=== PATIENT | male | born 1975 | race Caucasian/White ===

== ENCOUNTER 2021-09-10 15:41 | Emergency (ER) | payer OTHER, SELFPAY ==
--- NOTE | ~2021-09-10 | XR_ITS ---
EXAMINATION: XR chest 1V portable EXAM DATE: 09/10/2021 16:03 INDICATION: severe SOB with cough xtoday. COPD . TECHNIQUE: Portable AP frontal chest x-ray was obtained. There is no prior study for comparison. FINDINGS: Mild cardiomegaly. No confluent consolidation, pneumothorax or pleural effusion suspected. Surgical clips overlying left axilla, infraclavicular region. There are no osseous abnormalities iden tified. IMPRESSION: Cardiomegaly. Reviewed, dictated and finalized at location B. STITCH TOPSTITCHER IMPRESSION: Cardiomegaly.
--- NOTE | 2021-09-10 15:45 | ECG_ITS ---
Measurements Intervals [place] Rate: 92 P: 72 MT: 174 QRS: 103 QRSD: 100 T: 0 QT: 358 QTc: 444 Interpretive Statements SINUS RHYTHM POSSIBLE LEFT ATRIAL ENLARGEMENT RIGHT AXIS DEVIATION DELAYED PRECORDIAL R/S TRANSITION LOW QRS VOLTAGE IN LIMB LEADS BORDERLINE T WAVE ABNORMALITY- DIFFUSE LEADS BASELINE WANDER- V2 BORDERLINE ECG Electronically Signed On 09-11-2021 6:36:46 DEVELOPMENT SPECIALIST by Evan Daugherty D.O.
[2021-09-10 15:48] VITALS: BP 110/81; PULSE 101; RESP 24; TEMP 36.2; O2SAT 100
[2021-09-10 16:02] VITALS: BP 112/86; PULSE 95; RESP 24; O2SAT 100
[2021-09-10] MEDS: IPRATROPIUM 0.5 MG/ALBUTEROL SULFATE 2.5 MG AMPUL.NEB 3 ML INHALATION (16:32)
--- NOTE | 2021-09-10 16:45 | PC.NURSE ---
Pt refused blood draw and any more blood pressures. Pt stated he needed Xanax. Per Dr. Ponce if pt refused blood draw he can leave AMA. Pt stated he was refusing treatment and would leave.
--- NOTE | 2021-09-10 16:48 | ED.SOB ---
HPI - SOB/Dyspnea General Chief Complaint: Shortness of Breath/Dyspnea Stated Complaint: Trouble breathing Source: patient History of Present Illness HPI Narrative: this is a 46-year-old gentleman with history of heart disease has an external defibrillator presents with some shortness of breath that occurred suddenly earlier today presented the emergency department denies having any chest pain or pressure no nausea vomiting patient said he did become diaphoretic. With no abdominal pain no nausea vomiting. MD elicited complaint: shortness of breath and cough Pertinent past history: other ( heart disease) Onset (ago): hour(s) Related Data Allergies Allergy/AdvReac Type Severity Reaction Status Date / Time Shrimp Allergy Mild Unknown Uncoded 09/10/21 16:12 Review of Systems Review of Systems: All systems reviewed & are unremarkable except as noted in HPI and below PMFSH Past Medical History Medical History CAD (coronary artery disease) Exam Const: General: no acute distress and alert Orientation/consciousness: patient oriented x3 HENMT: Head: normal to inspection Eyes: Conjunctivae: conjunctivae normal Pupils: Equal, round and reactive pupils present EOM: EOMs intact bilaterally Neck: Neck: normal visual inspection, no lymphadenopathy and no meningeal signs Chest: Chest palpation & inspection: normal inspection of the chest Other: has an external defibrillator Resp: Effort & Inspection: normal respiratory effort Auscultation: clear to auscultation bilaterally Cardio: Rate: regular rate Rhythm: regular rhythm GI: GI Palp: Yes Soft to palpation Percussion: Yes normal to percussion Back/Spine/Pelvis: Back: no CVA tenderness Skin: General skin exam: normal color Rashes: no rashes Neuro: General: patient oriented x3 and moves all extremities Extrem: General: normal to inspection and no pedal edema Psych: Mental Status: mental status grossly normal Course Course Emergency Course: patient had chest x-ray performed which showed no acute pulmonary issues but does have cardiomegaly, otherwise patient refused any other intervention and blood draws and is likely a sign out against medical advice. Vital Signs Vital signs: Vital Signs Temperature 36.2 C L 09/10/21 15:48 Pulse Rate 101 H 09/10/21 15:48 Respiratory Rate 24 H 09/10/21 15:48 Blood Pressure 110/81 09/10/21 15:48 Pulse Oximetry 100 09/10/21 15:48 Temperature 36.2 C L 09/10/21 15:48 Pulse Rate 95 09/10/21 16:02 Respiratory Rate 24 H 09/10/21 16:02 Blood Pressure 112/86 09/10/21 16:02 Pulse Oximetry 100 09/10/21 16:02 MDM - SOB/Dyspnea Lab Data Labs: Lab Results 09/10/21 Range/Units 16:29 SARS-CoV-2 RNA (RT-PCR) Pending Critical Care Time Critical Care Time Critical Care Time: No Discharge Plan Discharge Clinical Impression: Breath shortness Patient Disposition: Left Against Medical Advice Condition: Stable Follow-up/Referrals: UNKNOWN,DOCTOR [Primary Care Provider] - Time of Disposition: 16:51
--- NOTE | 2021-09-10 16:59 | PC.NURSE ---
Incident for AMA completed.
[2021-09-10 17:10] LABS: SARS-CoV-2 RNA PCR Negative (Negative)
[2021-09-10 17:28] LABS: Influenza A QL RT-PCR Negative (Negative); Influenza B QL RT-PCR Negative (Negative)
== END 2021-09-10 16:48 | disposition left against medical advice (07) ==
PROVIDERS: Emergency Provider Emergency Medicine
DX: R06.02 Shortness of breath (principal); Z20.822 Contact with and (suspected) exposure to COVID-19
CPT/HCPCS: 71045; 87502; 93005; 99283; C9803; U0003; U0005

== ENCOUNTER 2021-09-16 22:23 | Observation (INO) | payer OTHER, SELFPAY ==
--- NOTE | ~2021-09-16 | XR_ITS ---
EXAMINATION: XR chest 2V EXAM DATE: 09/17/2021 02:19 INDICATION: Cough. History of CHF. TECHNIQUE: Frontal and lateral projections of the chest obtained and reviewed. Comparison is made to prior examination from 09/10/2021. FINDINGS: Possible ill-defined left perihilar airspace disease. There is small left pleural effusion. Please clinically correlate for edema versus pneumonia. No pneumothorax. Right lung is clear. IMPRESSION: Possible developing left perihilar edema or pneumonia. Small left pleural effusion. Reviewed, dictated and finalized at location A. ING MACHINE OPERATOR
--- NOTE | ~2021-09-16 | XR_ITS ---
EXAMINATION: XR abdomen/kub 1V EXAM DATE: 09/16/2021 23:34 INDICATION: Constipation X 3 days. TECHNIQUE: Frontal projection(s) of the abdomen for interpretation. There is no prior study for jordan martines. FINDINGS: There is moderate amount of colonic gas, smaller amount of stool within this. No small tin wel dilation, nonobstructive bowel gas pattern. There are no suspicious calcifications identified. There is no organomegaly suspected. The bones are unremarkable. IMPRESSION: Unremarkable abdomen x-ray exam. Reviewed, dictated and finalized at location A. RVISOR PROP MAKING
[2021-09-16 22:47] VITALS: BP 114/94; PULSE 103; RESP 20; TEMP 36.2; O2SAT 100
--- NOTE | 2021-09-16 22:52 | ED.GENADULT ---
HPI - General Adult General Chief complaint: Unspecified Stated complaint: detoxing of off medications Source: patient and RN notes reviewed Mode of arrival: ambulatory Limitations: no limitations History of Present Illness HPI narrative: patient presents because he says he wants to get off of his medications. Last time he took his medications was 1 day ago so he missed all of his doses last night and today. He does not know the medications that he is on he did not bring a list. Left all of his medications at home. Does not know what he takes medications for. Patient does state he has a history of methamphetamine use in the past. Currently smokes marijuana. He was finally able to give us name of a friend that we could call to get his medications. All of his medications are consistent with congestive heart failure. He says the medications he is taking is giving him hallucinations and making him not sleep. He did not know he had a diagnosis of congestive heart failure. We were also able to discern that he was recently hospitalized at [facility] in [facility]. I was able to confirm that he was a patient there from 09/03/2021 till 09/08/2021. he has 1 previous visit here 6 days ago but left AMA before any confirmation of medication or labs could be drawn. complaint: Wants off medications Onset (ago): day(s) (1) Related Data Home Medications Medication Instructions Recorded Confirmed carvedilol 6.25 mg PO QID 09/16/21 09/16/21 furosemide 20 mg PO QID 09/16/21 09/16/21 sacubitril-valsartan [Entresto] 1 tablet PO BID 09/16/21 09/16/21 spironolactone 25 mg PO QID 09/16/21 09/16/21 Allergies Allergy/AdvReac Type Severity Reaction Status Date / Time Shrimp Allergy Mild Unknown Uncoded 09/10/21 16:12 Review of Systems Review of Systems: All systems reviewed & are unremarkable except as noted in HPI and below Constitutional: Constitutional: Denies chills and Denies fever(s) Cardiovascular: Cardiovascular: Denies chest pain Respiratory: Respiratory: Reports cough and Denies dyspnea Gastrointestinal: Gastrointestinal: Reports constipation ( States he has not had a bowel movement in 3 days), Denies nausea and Denies vomiting [facility] Past Medical History Medical History (Updated 09/17/21 @ 02:53 by Malcolm Zambrano MD) Congestive heart failure COPD (chronic obstructive pulmonary disease) Dilated cardiomyopathy Melanoma Social History Social History (Updated 09/16/21 @ 23:26 by Malcolm Zambrano MD) Smoking packs per day: 1.5 Smoking cigarettes per day: 30.0 Years smoked: 30 Smoking pack-years: 45.00 Smoking status: Former smoker Tobacco type: cigarettes Second hand tobacco smoke exposure: Yes Alcohol intake: former Substance use: current Substance use type: marijuana Other substance usage details: history of meth use Spiritual care concerns: No Exam Const: General: no acute distress, alert and confusion Nutritional Appearance: well nourished HENMT: Head: normal to inspection Ears: external ears normal Face and sinus: normal facial exam Mouth: Yes moist mucous membranes Eyes: Conjunctivae: conjunctivae normal Pupils: Equal, round and reactive pupils present EOM: EOMs intact bilaterally Neck: Neck: normal visual inspection Resp: Effort & Inspection: normal respiratory effort Auscultation: clear to auscultation bilaterally Cardio: Rate: regular rate Rhythm: regular rhythm GI: GI Palp: Yes Soft to palpation, No Tenderness to palpation present (GI), No Guarding due to palpation present (GI) and No Rebound tenderness present Auscultation: normal bowel sounds Back/Spine/Pelvis: Cervical Spine: cervical ROM normal Thoracic/Lumbar Spine: thoraco-lumbar ROM normal Skin: General skin exam: normal color Rashes: no rashes Neuro: General: moves all extremities, no meningeal signs, no focal motor deficits and CN's II-XI intact bilaterally Speech: normal speech Gait e
--- NOTE | 2021-09-16 23:25 | PC.NURSE ---
Patient is a poor historian and unable to provide any insight in regards to home medications, previous medical or surgical history. patient states that he is a previous IV drug user, smoke marijuana daily, and denies drinking alcohol. Patient states that he was recently seen and treated at [facility] in [place]. After RN searched prescription hx, it appears that the patient was treated and discharged in [place] by a Dr.Rekha Palacios. Patient states that he decided to take himself off of home medications because he states that he does not need them and they have caused him insomnia for past four days. Patient was educated by ERP that his home medications are for heart failure and without them, he may decline in health or . Patient states that he does not want to take them because there is nothing wrong with me. RN spoke with Gadiel, friend, who provided medication list.
[2021-09-17] VITALS (9 sets, daily range): BP systolic 84–120; BP diastolic 66–78; PULSE 80–98; RESP 16–20; TEMP 36–36.7; O2SAT 98–100; BMI 25.2
[2021-09-17 00:12] LABS: Amphetamine Screen Urine Negative (Negative); Barbiturate Screen Urine Negative (Negative); Benzodiazepines Screen Urine Negative (Negative); Cannabinoid Screen Urine Positive (Negative); Cocaine Screen Urine Negative (Negative); Methadone Screen Urine Negative (Negative); Opiate Screen Urine Negative (Negative); Phencyclidine Screen Urine Negative (Negative)
[2021-09-17 00:18] LABS: Alanine Aminotransferase 79 U/L (16-63); Albumin Level 2.8 g/dL (3.4-5.0); Alkaline Phosphatase 100 U/L (46-116); Anion Gap 11 mmol/L (8-16); Aspartate Amino Transferase 29 U/L (15-37); Bilirubin,Total 0.7 mg/dL (0.00-1.00); Blood Urea Nitrogen 15 mg/dL (7-18); Calcium 8.4 mg/dL (8.5-10.1); Carbon Dioxide 24 mmol/L (21-32); Chloride 91 mmol/L (98-108); Estimated CRCL calculation 76 ml/min; Estimated Glomerular Filt Rate > 60; Glucose 118 mg/dL (70-99); Osmolality Calculated 263 mOsm/kg (285-295); Sodium 126 mmol/L (136-145); Total Protein 5.9 g/dL (6.4-8.2)
[2021-09-17 00:23] LABS: Magnesium 2.1 mg/dL (1.8-2.4); NT Pro B Type Natriuretic Pept 9563 pg/mL (0-125)
[2021-09-17 00:50] LABS: Basophils Absolute Auto 0.05 K/mm3 (0.00-0.10); Basophils Percent Auto 0.3 % (0.0-1.0); Eosinophils Absolute Auto 0.41 K/mm3 (0.02-0.50); Eosinophils Percent Auto 2.6 % (1.0-6.0); Hematocrit 40.1 % (40.0-54.0); Immature Granulocyte Absolute 0.08 K/mm3 (0.00-0.00); Immature Granulocyte Percent A 0.5 % (0.0-0.0); Immature Platelet Fraction Pct 7.6 % (1.0-7.0); Lymphocytes Absolute Auto 3.02 K/mm3 (1.10-4.50); Mean Corpuscular HGB Conc 32.4 g/dL (32.0-36.0); Mean Corpuscular Volume 92.4 fL (78.0-102.0); Mean Platelet Volume 13.5 fl (8.7-11.0); Monocytes Absolute Auto 0.98 K/mm3 (0.10-0.90); Monocytes Percent Auto 6.2 % (2.0-11.0); Neutrophils Absolute Auto 11.4 K/mm3 (1.7-7.2); Neutrophils Percent Auto 71.4 % (50.0-70.0); Platelet Count Result 320 K/mm3 (150-420); Red Blood Count 4.34 M/mm3 (4.70-6.10); Red Cell Distribution Width 15.1 % (11.6-14.4); White Blood Count 15.9 K/mm3 (4.8-10.8)
[2021-09-17] MEDS: FUROSEMIDE INJ 40 MG/4 ML VIAL 60 MG IV PUSH (01:12)
--- NOTE | 2021-09-17 03:53 | ADMGEN ---
This patient, Fer Tavera, was admitted to 2nd Floor Room 203-2. Patient/family oriented to hospital policies and general routines including ID bracelet, bed and alarms, visiting hours, pain management, procedures, bathroom and other care routines, personal items, smoking policy, room service/diet, and visiting hours. Information on how to activate the Rapid Response Team has been discussed. Patient/Family are encouraged to report perceived risks to care and to ask questions if they do not understand what they are told or what they should do. Patient states he has great difficulty with reading and writing.
--- NOTE | 2021-09-17 07:20 | PC.NURSE ---
Patient placed on telemetry for CHF precautions.
[2021-09-17 07:36] LABS: Anion Gap 7 mmol/L (8-16); Blood Urea Nitrogen 12 mg/dL (7-18); Calcium 8.1 mg/dL (8.5-10.1); Carbon Dioxide 28 mmol/L (21-32); Chloride 97 mmol/L (98-108); Estimated CRCL calculation 87 ml/min; Estimated Glomerular Filt Rate > 60; Glucose 116 mg/dL (70-99); Osmolality Calculated 274 mOsm/kg (285-295); Potassium 3.4 mmol/L (3.5-5.1); Sodium 132 mmol/L (136-145)
[2021-09-17] MEDS: carvediloL 6.25 MG TABLET PO ×2 (08:50→13:50)
[2021-09-17] MEDS: FUROSEMIDE 20 MG TABLET PO ×4 (08:50→21:55)
[2021-09-17] MEDS: SACUBITRIL/VALSARTAN 24-26 MG TABLET 1 TAB PO ×2 (08:50→21:55)
[2021-09-17] MEDS: SPIRONOLACTONE 25 MG TABLET PO ×4 (08:50→21:56)
--- NOTE | 2021-09-17 11:24 | PM.IMHP ---
H&P: HPI History of Present Illness Date/Time: 09/17/21 11:24 this is a 46-year-old male who presented to our emergency department for shortness of breath and not feeling well after taking himself off of his cardiac medication. Patient has a past medical history of congestive heart failure, COPD, cardiomyopathy and Melanoma. Patient was hospitalized at a hospital in [facility] on 09/03/2021. Cardiology was consulted and echo was completed which showed systolic function markedly decreased with estimated EF of 10 to 15% at that time he was prescribed carvedilol 6.25 Lasix and entresto and spironolactone in received a LifeVest. Patient noted that he had attempted to locate a primary care physician and dry cell battery assembler here in [place] with no relief. Patient notes that he decided to discontinue his medication and notes that his LifeVest was uncomfortable so he discontinued medication in my best. Patient notes that he is simple meaning he has a learning disability and does not always quite understand instructions. I explained the importance of using his cardiac LifeVest and cardiac medications informed him that if he discontinues the use he can have sudden cardiac . Patient knows that he will have someone bring up the LifeVest and we will attempt to set him up with a primary care physician and dry cell battery assembler. Patient notes that his friend is his caregiver I did attempt to call his friend Gadiel to update him on his Fer current situation. WBCs 15.9 hemoglobin 13 hematocrit 40.1 platelets 320 sodium 126, potassium 4.0, BUN 15, creatinine 1.11, glucose 118, calcium 8.4, magnesium 2.1, ALT 79, AST 29, BUN 9563, toxicology positive for cannabis, chest x-ray possible development of edema versus pneumonia with a small left pleural effusion x-ray of the abdomen unremarkable EKG sinus rhythm with a heart rate of 92. The patient denies SOB, CP, palpitation, extremity numbness, lightheadedness, dizziness, constipation, diarrhea, chills, or fever. Observation <SHADE Mccabe - Last Filed: 09/17/21 15:04> Chief Complaint: Shortness of breath, <SHADE Mccabe - Last Filed: 09/17/21 15:04> Review of Systems Review of Systems: A 14 organ system Review of Systems was performed and pertinent positives included in the HPI, otherwise remaining ROS is negative. <SHADE Mccabe - Last Filed: 09/17/21 15:04> [facility] Past Medical History Medical History: Medical History (Updated 09/17/21 @ 13:15 by SHADE Mccabe) Congestive heart failure COPD (chronic obstructive pulmonary disease) Dilated cardiomyopathy Melanoma <SHADE Mccabe - Last Filed: 09/17/21 15:04> Social History Social History: Social History (Updated 09/16/21 @ 23:26 by Malcolm Zambrano MD) Smoking packs per day: 1.5 Smoking cigarettes per day: 30.0 Years smoked: 30 Smoking pack-years: 45.00 Smoking status: Former smoker Tobacco type: cigarettes Second hand tobacco smoke exposure: Yes Alcohol intake: former Substance use: current Substance use type: marijuana Other substance usage details: history of meth use Spiritual care concerns: No <SHADE Mccabe - Last Filed: 09/17/21 15:04> Meds Home Medications and Allergies Home medications: Home Medications Medication Instructions Recorded Confirmed Type carvedilol 6.25 mg PO QID 09/16/21 09/16/21 History furosemide 20 mg PO QID 09/16/21 09/16/21 History sacubitril-valsartan [Entresto] 1 tablet PO BID 09/16/21 09/16/21 History spironolactone 25 mg PO QID 09/16/21 09/16/21 History <SHADE Mccabe - Last Filed: 09/17/21 15:04> Allergies/Adverse reactions: Allergies Allergy/AdvReac Type Severity Reaction Status Date / Time Shrimp Allergy Mild Unknown Uncoded 09/10/21 16:12 <SHADE Mccabe - Last Filed: 09/17/21 15:04> Vital Signs Vital Signs - 24 hr 09/16/21 22:47
[2021-09-17] MEDS: BENZONATATE 100 MG CAPSULE 200 MG PO ×2 (13:50→17:16)
[2021-09-17] MEDS: ACETAMINOPHEN 500 MG TABLET 1000 MG PO ×2 (13:53→23:03)
--- NOTE | 2021-09-17 14:30 | PC.NURSE ---
Patient catheter has been discontinued and removed, monitoring output will continue.
[2021-09-17] MEDS: LORazepam INJ (*CRX) 2 MG/ML VIAL 0.5 MG IV PUSH ×2 (14:31→20:31)
[2021-09-17] MEDS: carvediloL 3.125 MG TABLET PO (20:17)
[2021-09-17] MEDS: BUDESONIDE/FORMOTEROL 80/4.5 MCG 6.9 GM INHALER (*SP) 2 PUFF INHALATION (21:55)
[2021-09-17] MEDS: traZODone HCL 25 MG TABLET PO (21:56)
[2021-09-18] VITALS: BP 93/76; PULSE 95; RESP 20; TEMP 36.9; O2SAT 100
[2021-09-18 04:00] VITALS: BP 93/70; PULSE 89; RESP 20; TEMP 36.9; O2SAT 97
--- NOTE | 2021-09-18 04:17 | PC.NURSE ---
Covid test completed. results pending
[2021-09-18 05:36] LABS: Lactic Acid Reflex 1.9 mmol/L (0.4-2.0)
[2021-09-18 05:38] LABS: Alanine Aminotransferase 63 U/L (16-63); Albumin Level 2.5 g/dL (3.4-5.0); Alkaline Phosphatase 89 U/L (46-116); Anion Gap 12 mmol/L (8-16); Aspartate Amino Transferase 17 U/L (15-37); Bilirubin,Total 0.5 mg/dL (0.00-1.00); Blood Urea Nitrogen 16 mg/dL (7-18); Calcium 8.1 mg/dL (8.5-10.1); Carbon Dioxide 21 mmol/L (21-32); Chloride 102 mmol/L (98-108); Estimated CRCL calculation 71 ml/min; Estimated Glomerular Filt Rate > 60; Glucose 147 mg/dL (70-99); Magnesium 2.2 mg/dL (1.8-2.4); NT Pro B Type Natriuretic Pept 7622 pg/mL (0-125); Osmolality Calculated 284 mOsm/kg (285-295); Potassium 3.8 mmol/L (3.5-5.1); Sodium 135 mmol/L (136-145); Total Protein 5.6 g/dL (6.4-8.2)
[2021-09-18] MEDS: LORazepam INJ (*CRX) 2 MG/ML VIAL 0.5 MG IV PUSH (06:36)
[2021-09-18 07:42] VITALS: BP 98/77; PULSE 92; PULSE 95; RESP 20; TEMP 37; O2SAT 100
[2021-09-18 08:19] LABS: Basophils Absolute Auto 0.04 K/mm3 (0.00-0.10); Basophils Percent Auto 0.4 % (0.0-1.0); Eosinophils Absolute Auto 0.63 K/mm3 (0.02-0.50); Eosinophils Percent Auto 6.1 % (1.0-6.0); Hematocrit 39.1 % (40.0-54.0); Hemoglobin 12.8 g/dL (14.0-18.0); Immature Granulocyte Absolute 0.03 K/mm3 (0.00-0.00); Immature Granulocyte Percent A 0.3 % (0.0-0.0); Immature Platelet Fraction Pct 5.6 % (1.0-7.0); Lymphocytes Absolute Auto 2.96 K/mm3 (1.10-4.50); Lymphocytes Percent Auto 28.6 % (18.0-42.0); Mean Corpuscular HGB Conc 32.7 g/dL (32.0-36.0); Mean Corpuscular Hemoglobin 30.3 pg (27.0-31.0); Mean Corpuscular Volume 92.4 fL (78.0-102.0); Mean Platelet Volume 13.3 fl (8.7-11.0); Monocytes Absolute Auto 0.64 K/mm3 (0.10-0.90); Monocytes Percent Auto 6.2 % (2.0-11.0); Neutrophils Absolute Auto 6.1 K/mm3 (1.7-7.2); Neutrophils Percent Auto 58.4 % (50.0-70.0); Platelet Count Result 306 K/mm3 (150-420); Red Blood Count 4.23 M/mm3 (4.70-6.10); Red Cell Distribution Width 15.5 % (11.6-14.4); White Blood Count 10.4 K/mm3 (4.8-10.8)
[2021-09-18] MEDS: BUDESONIDE/FORMOTEROL 80/4.5 MCG 6.9 GM INHALER (*SP) 2 PUFF INHALATION (08:30)
[2021-09-18 08:31] VITALS: PULSE 92
[2021-09-18] MEDS: SPIRONOLACTONE 25 MG TABLET PO ×3 (08:31→17:00)
[2021-09-18] MEDS: carvediloL 3.125 MG TABLET PO (08:31)
[2021-09-18] MEDS: SACUBITRIL/VALSARTAN 24-26 MG TABLET 1 TAB PO (08:31)
[2021-09-18] MEDS: FUROSEMIDE 20 MG TABLET PO ×3 (08:31→17:00)
[2021-09-18] MEDS: BENZONATATE 100 MG CAPSULE 200 MG PO ×3 (08:32→17:00)
--- NOTE | 2021-09-18 11:30 | PC.NURSE ---
cardiology appointment attempted, unable to arrange at this time
--- NOTE | 2021-09-18 11:37 | PM.DS ---
DS: Admitting Diagnosis Discharge Date 09/18/2021 <LAST Sands - Last Filed: 09/18/21 12:12> Admitting Diagnosis CHF, Dialated Cardiomyopathy, COPD, Drug Abuse <LAST Sands - Last Filed: 09/18/21 12:12> DS: Discharge Diagnosis Discharge Diagnosis (1) Dilated cardiomyopathy: Code(s): I42.0 - Dilated cardiomyopathy <LAST Sands - Last Filed: 09/18/21 12:12> Status: Acute <LAST Sands - Last Filed: 09/18/21 12:12> Assessment and Plan: Nonischemic cardiomyopathy Echo from outside hospital completed 09/06/2021 indicates 1. Left ventricle the cavity size is markedly increased systolic function is markedly reduced. The estimated ejection fraction is 10/50%. Severe global hypokinesis. LVEF calculated by modified Mcelroy biplane method was around 12% dilated cardiomyopathy 2. Right ventricle the cavity size is mildly increased systolic function is mildly reduced by visual assessment RV pressure doing systolic by Doppler is 58 mmHg 3. Left atrium the atrium is markedly dilated 4. Right atrium the atrium is markedly dilated 5. Mitral valve there is mild regurgitation 6. Pericardium extracardiac a pericardial effusion is identified 7. Definity was used for better endocardial resolution. No LV apical clot noted on the Definity image According to outside hospital patient will need to follow-up with electrophysiology, he will also need a cardiac cath. According to notes patient completed a cardiac cath on 09/07/2021 results left main, LAD, left circumflex, RCA normal Patient will possibly need a defibrillator. Patient will need a BMP with results going to his new primary care physician on discharge 09/18/2021 Pt's brother brought Kyler Lucero, Pt has PCP appointment tomorrow at 1030 and was informed to be there at 1015 hours, Unable to set up cardiology appointment at this time. Will need referral from new PCP. <LAST Sands - Last Filed: 09/18/21 12:12> (2) COPD (chronic obstructive pulmonary disease): Qualifiers: COPD type: unspecified COPD Qualified Code(s): J44.9 - Chronic obstructive pulmonary disease, unspecified <LAST Sands - Last Filed: 09/18/21 12:12> Code(s): J44.9 - Chronic obstructive pulmonary disease, unspecified <Greg Zamorano LAST Mcqueen - Last Filed: 09/18/21 12:12> Status: Acute <Greg Zamorano LAST Mcqueen - Last Filed: 09/18/21 12:12> Assessment and Plan: Stable Shortness of breath caused by pulmonary edema Patient will need to discharge home with Symbicort and albuterol inhaler 09/18/2021 Pt has occasional cough, lungs clear. will DC with Robitussin DM and Augmentin <Greg GillespieJeremi Mcqueen APN-Donnie - Last Filed: 09/18/21 12:12> (3) Congestive heart failure: Qualifiers: Heart failure chronicity: acute on chronic Heart failure type: combined systolic and diastolic Qualified Code(s): I50.43 - Acute on chronic combined systolic (congestive) and diastolic (congestive) heart failure <Greg Jose MiguelLAST Campbell - Last Filed: 09/18/21 12:12> Code(s): I50.9 - Heart failure, unspecified <Greg GillespieLAST Campbell - Last Filed: 09/18/21 12:12> Status: Acute <Greg Zamorano LAST Mcqueen - Last Filed: 09/18/21 12:12> Assessment and Plan: Uncompensated BNP 9563 Chest x-ray indicates edema Patient will need to continue Lasix 20 mg 4 times daily 09/18/2021 P-BNP improved, lungs clear, no peripheral edema, Reported EF about 15% <Greg GillespieLAST Campbell - Last Filed: 09/18/21 12:12> (4) Melanoma: Qualifiers: Melanoma location: unspecified site Qualified Code(s): C43.9 - Malignant melanoma of skin, unspecified <Greg Jose MiguelLAST Campbell - Last Filed: 09/18/21 12:12> Code(s): C43.9 - Malignant melanoma of skin, unspecified <Greg Jose MiguelLAST Campbell - Last Filed: 09/18/21 12:12> Status:
--- NOTE | 2021-09-18 13:43 | PC.NURSE ---
Patient has received discharge instructions and acknowledges understanding of instructions given. IV site has been discontinued and removed. Patient remains in house until a ride is available for transport.
[2021-09-18] MEDS: BENZOCAINE/MENTHOL (*BKC) LOZENGE 1 LOZENGE PO ×5 (15:04→20:21)
[2021-09-18 16:00] VITALS: BP 93/75; PULSE 104; RESP 20; TEMP 37; O2SAT 98
--- NOTE | 2021-09-18 19:00 | PC.NURSE ---
Completed change of shift report and updated his board. Patient has been discharged, and is waiting for a ride home. His ride will not be here until approximately 10 pm. Patient asked for a snack and ice. He stated he did not need anything else. Patient was given jello, cottage cheese, and ice.
--- NOTE | 2021-09-18 21:46 | PC.NURSE ---
pt is insistent he be readmitted, pt informed he would have to go through er and it would be up to the doctor if he is readmitted, pt refuses
--- NOTE | 2021-09-18 22:05 | PC.NURSE ---
pt requests to be taken down to er via w/c, pt informed he needs to take all belongings with him so nothing is lost
--- NOTE | 2021-09-24 12:28 | PC.NURSE ---
Unable to contact for discharge call back.
== END 2021-09-18 22:20 | disposition home or self-care (01) ==
LOC: CHSED 09-17 02:53 → CHS2ND 09-17 08:04
PROVIDERS: Nurse Practitioner; Nurse Practitioner Family; Admitting Provider Emergency Medicine; Emergency Provider Emergency Medicine; Visit Provider Emergency Medicine
DX: I42.0 Dilated cardiomyopathy (principal); I50.9 Heart failure, unspecified; J44.9 Chronic obstructive pulmonary disease, unspecified; F19.10 Other psychoactive substance abuse, uncomplicated; Z87.891 Personal history of nicotine dependence; Z85.820 Personal history of malignant melanoma of skin; Z79.899 Other long term (current) drug therapy
CPT/HCPCS: 36415; 71046; 74018; 80048; 80053; 80307; 83605; 83735; 83880; 85025; 85055; 96374; 96375; 96376; 99285; A9270; G0378; G0379; J1940; J2060

== ENCOUNTER 2021-09-18 22:27 | Emergency (ER) | payer OTHER, SELFPAY ==
--- NOTE | ~2021-09-18 | XR_ITS ---
EXAMINATION: XR chest 1V portable EXAM DATE: 09/19/2021 02:12 INDICATION: Shortness of breath. TECHNIQUE: Portable AP frontal chest x-ray was obtained. Comparison is made to prior examination from 09/17/2021. FINDINGS: Again there is mild cardiomegaly, small left pleural effusion. Mild improvement in previous ly seen ill-defined retrocardiac edema or pneumonia. There is no pneumothorax suspected. There are no osseous abnormalities identified. IMPRESSION: 1. Mild improvement in ill-defined perihilar edema or pneumonia. 2. Cardiomegaly, small left effusion. Reviewed, dictated and finalized at location A. WARE INSTALLATION ENGINEER
[2021-09-19 00:52] VITALS: BP 98/82; PULSE 102; RESP 22; TEMP 36.4; O2SAT 100
--- NOTE | 2021-09-19 01:34 | PC.NURSE ---
pt used the call light because the blood pressure cuff was not working. pt informed this staff member that he took the battery out of his life vest because the life vest and the blood pressure cuff was giving him to much anxiety. this staff member informed the pt that he needed to put the battery back in his life vest. pt stated, i can't until i get something for anxiety. MD Kat updated with pt status, no new orders at this time.
--- NOTE | 2021-09-19 01:54 | ECG_ITS ---
Measurements Intervals [place] Rate: 101 P: 62 [place]: 156 QRS: 15 QRSD: 99 T: 122 QT: 342 QTc: 445 Interpretive Statements SINUS TACHYCARDIA DELAYED PRECORDIAL R/S TRANSITION LOW QRS VOLTAGE IN LIMB LEADS BORDERLINE T WAVE ABNORMALITY- INF/HIGH LAT LEADS BASELINE ARTIFACT- V6 BORDERLINE ECG Electronically Signed On 09-19-2021 6:48:41 PRE BILLING SPECIALIST by Evan Daugherty D.O.
[2021-09-19] MEDS: FUROSEMIDE INJ 40 MG/4 ML VIAL IM (02:15)
[2021-09-19] MEDS: IBUPROFEN 400 MG TABLET 800 MG PO (02:16)
[2021-09-19] MEDS: guaiFENesin 12 HR 600 MG TABCR PO (02:16)
[2021-09-19] MEDS: LORazepam (*CRX) 0.5 MG TABLET 1 MG (02:17)
--- NOTE | 2021-09-19 02:20 | PC.NURSE ---
pt completely remove his life vest. pt states, i will put it back on once i calm down.
[2021-09-19 02:25] LABS: Basophils Absolute Auto 0.06 K/mm3 (0.00-0.10); Basophils Percent Auto 0.5 % (0.0-1.0); Eosinophils Absolute Auto 0.45 K/mm3 (0.02-0.50); Eosinophils Percent Auto 3.5 % (1.0-6.0); Hematocrit 38.5 % (40.0-54.0); Hemoglobin 12.7 g/dL (14.0-18.0); Immature Granulocyte Absolute 0.05 K/mm3 (0.00-0.00); Immature Granulocyte Percent A 0.4 % (0.0-0.0); Lymphocytes Absolute Auto 3.33 K/mm3 (1.10-4.50); Lymphocytes Percent Auto 25.6 % (18.0-42.0); Mean Corpuscular Hemoglobin 30.2 pg (27.0-31.0); Mean Corpuscular Volume 91.4 fL (78.0-102.0); Mean Platelet Volume 12.3 fl (8.7-11.0); Monocytes Absolute Auto 0.66 K/mm3 (0.10-0.90); Monocytes Percent Auto 5.1 % (2.0-11.0); Neutrophils Absolute Auto 8.5 K/mm3 (1.7-7.2); Neutrophils Percent Auto 64.9 % (50.0-70.0); Platelet Count Result 353 K/mm3 (150-420); Red Blood Count 4.21 M/mm3 (4.70-6.10); Red Cell Distribution Width 15.3 % (11.6-14.4)
[2021-09-19 02:44] LABS: Alanine Aminotransferase 60 U/L (16-63); Albumin Level 2.7 g/dL (3.4-5.0); Alkaline Phosphatase 91 U/L (46-116); Anion Gap 13 mmol/L (8-16); Aspartate Amino Transferase 17 U/L (15-37); Bilirubin,Total 0.5 mg/dL (0.00-1.00); Blood Urea Nitrogen 27 mg/dL (7-18); Calcium 8.3 mg/dL (8.5-10.1); Carbon Dioxide 18 mmol/L (21-32); Chloride 102 mmol/L (98-108); Estimated CRCL calculation 79 ml/min; Estimated Glomerular Filt Rate > 60; Glucose 134 mg/dL (70-99); Osmolality Calculated 283 mOsm/kg (285-295); Potassium 4.3 mmol/L (3.5-5.1); Sodium 133 mmol/L (136-145); Total Protein 5.9 g/dL (6.4-8.2); Troponin I 18.3 ng/L (0.00-60.4)
--- NOTE | 2021-09-19 06:32 | ED.GENADULT ---
HPI - General Adult General Source: patient and RN notes reviewed Mode of arrival: ambulatory Limitations: no limitations History of Present Illness complaint: Pt had chest pain and mild SOB x this late PM. Pt was seen by Dr Kat Onset (ago): hour(s) (3) Location: chest Radiation: non-radiation Severity: mild Severity scale (1-10): 4 Quality: aching, dull and constant Pain Consistency: constant Relieving factors: none Exacerbating factors: none Associated symptoms: shortness of breath Treatments prior to arrival: none Related Data Home Medications Medication Instructions Recorded Confirmed Entresto 1 tablet PO BID 09/16/21 09/19/21 carvedilol 6.25 mg PO QID 09/16/21 09/19/21 furosemide 20 mg PO QID 09/16/21 09/19/21 spironolactone 25 mg PO QID 09/16/21 09/19/21 aspirin [Adult Aspirin EC Low 81 mg PO DAILY 09/19/21 09/19/21 Strength] polyethylene glycol 17 ea MISCELLANEOUS DAILY 09/19/21 09/19/21 Allergies Allergy/AdvReac Type Severity Reaction Status Date / Time Shrimp Allergy Mild Unknown Uncoded 09/19/21 10:39 Review of Systems Review of Systems: All systems reviewed & are unremarkable except as noted in HPI and below PMFSH Past Medical History Medical History Anxiety Congestive heart failure COPD (chronic obstructive pulmonary disease) Dilated cardiomyopathy Melanoma Social History Social History Smoking packs per day: 1.5 Smoking cigarettes per day: 30.0 Years smoked: 30 Smoking pack-years: 45.00 Smoking status: Former smoker Tobacco type: cigarettes Second hand tobacco smoke exposure: Yes Alcohol intake: former Substance use: current Substance use type: marijuana Other substance usage details: history of meth use Spiritual care concerns: No Exam Const: General: no acute distress Orientation/consciousness: patient oriented x3 Limitations: no limitations HENMT: Head: normal to inspection Ears: external ears normal and TM's normal bilaterally General nose exam: Normal external nose present and Normal nares present Mouth: Yes lip normal and Yes moist mucous membranes Teeth and gingiva: dentition normal Eyes: Conjunctivae: conjunctivae normal Pupils: Equal, round and reactive pupils present EOM: EOMs intact bilaterally Neck: Neck: normal visual inspection and no lymphadenopathy Chest: Other: Pt had a lfe vest in situ, with the battery removed. Both HS were hears. good peripheral pulses. Resp: Effort & Inspection: normal respiratory effort Auscultation: clear to auscultation bilaterally Cardio: Rate: tachycardic GI: GI Palp: Yes Soft to palpation and No Tenderness to palpation present (GI) Percussion: Yes normal to percussion : General: Yes bladder normal to palpation and Yes no CVA tenderness Male General Exam: Yes normal external exam Testes: Testes normal Back/Spine/Pelvis: Back: no CVA tenderness Skin: General skin exam: normal color Neuro: General: patient oriented x3, moves all extremities, no meningeal signs, no focal motor deficits and CN's II-XI intact bilaterally Extrem: General: normal to inspection and no pedal edema Psych: Appearance: grossly normal Affect: normal affect Thought content: Yes Depressive thoughts present Course Course Emergency Course: Pt was in the hospital earlier 09/18/21 and insisted on gong home. Symptoms in the ED were mild and pt was stable with no acute pain or SOB, post Tx. Reevaluation(s) Date: 09/18/21 Time: 23:25 Vital Signs Vital signs: Vital Signs Temperature 36.4 C L 09/19/21 00:52 Pulse Rate 102 H 09/19/21 00:52 Respiratory Rate 22 H 09/19/21 00:52 Blood Pressure 98/82 L 09/19/21 00:52 Pulse Oximetry 100 09/19/21 00:52 Temperature 36.4 C L 09/19/21 00:52 Pulse Rate 104 H 09/19/21 07:27 Respiratory Rate 18 09/19/21 07:27 Blood Pressure 113/91 H 09/19
[2021-09-19] MEDS: cefTRIAXone 1 GM VIAL IM (06:57)
[2021-09-19] MEDS: LIDOCAINE HCL 1% LOCAL INJ 20 ML VIAL (06:57)
--- NOTE | 2021-09-19 07:15 | PC.NURSE ---
pt states, i have no place to go and i don't know how and when to take my medications because i am illiterate. you guys are responsible for me not being able to take my medication. pt put on his life vest prior to leaving the ER. pt wants to talk to dialysis social worker. this staff member informed pt that social service will be in at 8am and that he can wait in the er waiting area until they arrive.pt ambulating in room, dressed himself and put on his life vest without staff assistance.pt was discharged at 0713. pt ambulated without staff assistance from ER#3 to er waiting area at 0726.
[2021-09-19 07:27] VITALS: BP 113/91; PULSE 104; RESP 18; O2SAT 100
== END 2021-09-19 07:30 | disposition home or self-care (01) ==
PROVIDERS: Emergency Provider Emergency Medicine
DX: I42.0 Dilated cardiomyopathy (principal); D72.829 Elevated white blood cell count, unspecified
CPT/HCPCS: 36415; 71045; 80053; 84484; 85025; 93005; 96372; 99283; 99284; A9270; J0696; J1940

== ENCOUNTER 2022-02-16 11:31 | Emergency (ER) | payer OTHER, SELFPAY ==
--- NOTE | 2022-02-16 11:34 | ED.GENADULT ---
HPI - General Adult General Chief complaint: Skin/Abscess/Foreign Body Stated complaint: Skin Sore Time Seen by Provider: 02/16/22 11:34 Source: patient Mode of arrival: ambulatory Limitations: no limitations History of Present Illness HPI narrative: 46-year-old male patient presents to the [facility] with complaints of sores to bilateral arms and bilateral legs that started approximately 3 days ago. Patient states that he had a burn from working on a car on his right middle finger about 5 days ago. Patient states that about 3 days ago and similar looking sores has started on bilateral arms some of them have discharge, weeping, he is complaining of pain. Colic states he has been trying to clean the areas with hydrogen peroxide and alcohol. Related Data Home Medications Medication Instructions Recorded Confirmed Entresto 1 tablet PO BID 09/16/21 02/16/22 carvedilol 6.25 mg PO BID 09/16/21 02/16/22 furosemide 20 mg PO DAILY 09/16/21 02/16/22 spironolactone 25 mg PO DAILY 09/16/21 02/16/22 Allergies Allergy/AdvReac Type Severity Reaction Status Date / Time No Known Allergies Allergy Verified 02/16/22 11:48 Review of Systems Review of Systems: CONSTITUTIONAL: Denies fever, chills, or sweats. EYES: Denies visual changes, redness, or discharge. ENT: Denies rhinorrhea, congestion, sore throat, or otalgia. CARDIOVASCULAR: Denies chest pain, palpitations, or edema. RESPIRATORY: Denies cough or dyspnea. GASTROINTESTINAL: Denies abdominal pain, nausea, vomiting, or diarrhea. GENITOURINARY: Denies dysuria or hematuria. SKIN: Positive rash with open wounds and sores to bilateral upper extremities and bilateral lower extremities. MUSCULOSKELETAL: Denies back pain, joint pain, or myalgia. NEUROLOGIC: Denies headache, numbness, or weakness. PSYCHIATRIC: Denies anxiety or depression. [facility] Past Medical History Medical History Anxiety Congestive heart failure COPD (chronic obstructive pulmonary disease) Dilated cardiomyopathy Melanoma Social History Social History Smoking packs per day: 1.5 Smoking cigarettes per day: 30.0 Years smoked: 30 Smoking pack-years: 45.00 Smoking status: Former smoker Tobacco type: cigarettes Second hand tobacco smoke exposure: Yes Alcohol intake: former Substance use: current Substance use type: marijuana Other substance usage details: history of meth use Spiritual care concerns: No Comments At the time of my signature I agree with nursing past medical history, surgical, social, and family history. There is no relevant family history pertinent to the presenting complaint. Exam Narrative: GENERAL: Well-appearing, well-nourished, and in no acute distress. HEAD: Normocephalic, atraumatic. EYES: PERRLA and EOMI. ENT: Nares clear, no rhinorrhea or epistaxis. Mucous membranes moist. NECK: Supple. No lymphadenopathy CHEST: Clear to auscultation. No respiratory distress. HEART: Regular rate and rhythm. No murmur heard. Normal peripheral pulses. ABDOMEN: Soft, nontender, nondistended, normal active bowel sounds. EXTREMITIES: Normal range of motion. No edema. SKIN: Multiple open sores noted to bilateral upper extremities with scabbing, open wounds with drainage noted on several of them blisterlike skin rash. NEURO: No focal deficits. Alert and oriented x3. Course Course Level of Care: Express Care Visit Vital Signs Vital signs: Vital Signs Temperature 37.3 C 02/16/22 11:38 Pulse Rate 90 02/16/22 11:38 Respiratory Rate 18 02/16/22 11:38 Blood Pressure 122/63 02/16/22 11:38 Pulse Oximetry 99 02/16/22 11:38 Temperature 37.3 C 02/16/22 11:53 Pulse Rate 90 02/16/22 11:53 Respiratory Rate 18 02/16/22 11:53 Blood Pressure 122/63 02/16/22 11:53 Pulse Oximetry 99 02/16/22 11:53 Vital signs reviewed Procedures Other Procedure Pro
[2022-02-16 11:38] VITALS: BP 122/63; PULSE 90; RESP 18; TEMP 37.3; O2SAT 99
[2022-02-16 11:53] VITALS: BP 122/63; PULSE 90; RESP 18; TEMP 37.3; O2SAT 99
== END 2022-02-16 12:17 | disposition home or self-care (01) ==
PROVIDERS: Emergency Provider Nurse Practitioner Family
DX: L08.9 Local infection of the skin and subcutaneous tissue, unspecified (principal); B95.8 Unspecified staphylococcus as the cause of diseases classified elsewhere; Z87.891 Personal history of nicotine dependence; J44.9 Chronic obstructive pulmonary disease, unspecified; I50.9 Heart failure, unspecified; Z85.820 Personal history of malignant melanoma of skin
CPT/HCPCS: 99213; G0463

== ENCOUNTER 2022-12-22 15:04 | Emergency (ER) | payer OTHER, SELFPAY ==
[2022-12-22 15:15] VITALS: BP 128/75; PULSE 82; RESP 16; TEMP 36.4; O2SAT 100
--- NOTE | 2022-12-22 15:31 | ED.GENADULT ---
HPI - General Adult General Chief complaint: Unspecified Stated complaint: medication refill Source: patient Mode of arrival: ambulatory Limitations: no limitations History of Present Illness HPI narrative: Patient presents requesting refills on his medications. He has an underlying history of congestive heart failure and hypertension. He states he has not seen a green marketer in over a month as he failed to show for several appointments. He cannot tell me his comprehensive medication list with appropriate doses and frequencies. He states felt like his heart was pounding yesterday. He did not have any chest pain or shortness of breath at that time. He has not had symptoms since that time. Smokes a half pack per day and also smokes marijuana. He has a hx of [place] s/p stent placement. He states he has medication bottles at home and would be able to bring them in upon his return. Related Data Home Medications Medication Instructions Recorded Confirmed carvedilol 6.25 mg tablet 6.25 mg PO BID 09/16/21 02/16/22 furosemide 20 mg tablet 20 mg PO DAILY 09/16/21 02/16/22 sacubitril 24 mg-valsartan 26 mg 1 tablet PO BID 09/16/21 02/16/22 tablet (Entresto) spironolactone 25 mg tablet 25 mg PO DAILY 09/16/21 02/16/22 empagliflozin 10 mg tablet mg 12/22/22 (Jardiance) Allergies Allergy/AdvReac Type Severity Reaction Status Date / Time No Known Allergies Allergy Verified 02/16/22 11:48 Review of Systems Review of Systems: CONSTITUTIONAL: Denies fever, chills, or sweats. EYES: Denies visual changes, redness, or discharge. ENT: Denies rhinorrhea, congestion, sore throat, or otalgia. CARDIOVASCULAR: Reports sensation that his heart was pounding yesterday, since resolved. Denies chest pain, palpitations, or edema. RESPIRATORY: Denies cough or dyspnea. GASTROINTESTINAL: Denies abdominal pain, nausea, vomiting, or diarrhea. GENITOURINARY: Denies dysuria or hematuria. SKIN: Denies rash or itching. MUSCULOSKELETAL: Denies back pain, joint pain, or myalgia. NEUROLOGIC: Denies headache, numbness, dizziness, or weakness. PSYCHIATRIC: Denies anxiety or depression. [facility] Past Medical History Medical History (Updated 12/22/22 @ 15:37 by Surinder Toure [facility], ) Anxiety Congestive heart failure COPD (chronic obstructive pulmonary disease) Dilated cardiomyopathy Melanoma Surgical History Surgical History History of heart artery stent Family History Family History (Updated 12/22/22 @ 15:37 by Surinder Toure [facility], ) Mother Family history non-contributory Social History Social History Smoking packs per day: 0.5 Smoking cigarettes per day: 10.0 Years smoked: 30 Smoking pack-years: 15.00 Smoking status: Current every day smoker Tobacco type: cigarettes Second hand tobacco smoke exposure: Yes Alcohol intake: former Substance use: current Substance use type: marijuana Other substance usage details: history of meth use Living arrangements: with family Gender identity (if verbalized by the patient): Male Sexual Orientation (if Verbalized by the Patient): Straight or Heterosexual Spiritual care concerns: No Exam Narrative: GENERAL: Well-appearing, well-nourished, and in no acute distress. HEAD: Normocephalic, atraumatic. EYES: PERRLA and EOMI. ENT: Nares clear, no rhinorrhea or epistaxis. Mucous membranes moist. Oropharynx without tonsillar hypertrophy exudate or other lesions. Bilateral TMs pearly hernandez nonbulging NECK: Supple. No adenopathy or masses. No carotid bruits or JVD CHEST: Clear to auscultation. No respiratory distress. No wheezes rales or rhonchi HEART: Regular rate and rhythm. No murmur heard. Normal peripheral pulses. ABDOMEN: Soft, nontender, nondistended, normal active bowel sounds. EXTREMITIES: Normal range of motion. No edema. SKIN: There are
== END 2022-12-22 15:34 | disposition home or self-care (01) ==
PROVIDERS: Emergency Provider Nurse Practitioner
DX: Z76.0 Encounter for issue of repeat prescription (principal); F17.210 Nicotine dependence, cigarettes, uncomplicated; F12.90 Cannabis use, unspecified, uncomplicated; I10 Essential (primary) hypertension; I50.9 Heart failure, unspecified; J44.9 Chronic obstructive pulmonary disease, unspecified; Z85.820 Personal history of malignant melanoma of skin; Z95.5 Presence of coronary angioplasty implant and graft
CPT/HCPCS: 99211; G0463

== ENCOUNTER 2022-12-23 13:42 | Emergency (ER) | payer OTHER, SELFPAY ==
[2022-12-23 13:46] VITALS: BP 152/85; PULSE 79; RESP 20; TEMP 37.1; O2SAT 99
--- NOTE | 2022-12-23 13:47 | ED.GENADULT ---
HPI - General Adult General Chief complaint: Unspecified Stated complaint: refill Time Seen by Provider: 12/23/22 13:53 Source: patient and RN notes reviewed History of Present Illness HPI narrative: Patient is a 47-year-old male who presents to urgent care requesting several medication refills of cardiac medications. Patient was seen at our facility yesterday and was told to bring his prescription bottles to the facility and they would be refilled by that provider. However, patient did not bring his medications back to the facility yesterday nor did he bring them today. Patient states he has 1 dose of the medications left. States that he was fired from his doctor because he was not compliant did not show up to his appointments. Patient is currently not having any symptoms. No other acute complaints. No acute distress noted. Patient aware of the plan of care. Some parts of this dictation were generated by voice recognition software and may contain typographical and/or grammatical inaccuracies. Related Data Home Medications Medication Instructions Recorded Confirmed carvedilol 6.25 mg tablet 6.25 mg PO BID 09/16/21 02/16/22 furosemide 20 mg tablet 20 mg PO DAILY 09/16/21 02/16/22 sacubitril 24 mg-valsartan 26 mg 1 tablet PO BID 09/16/21 02/16/22 tablet (Entresto) spironolactone 25 mg tablet 25 mg PO DAILY 09/16/21 02/16/22 empagliflozin 10 mg tablet mg 12/22/22 (Jardiance) Allergies Allergy/AdvReac Type Severity Reaction Status Date / Time No Known Allergies Allergy Verified 02/16/22 11:48 Review of Systems Review of Systems: CONSTITUTIONAL: Denies fever, chills, or sweats. EYES: Denies visual changes, redness, or discharge. ENT: Denies rhinorrhea, congestion, sore throat, or otalgia. CARDIOVASCULAR: Denies chest pain, palpitations, or edema. RESPIRATORY: Denies cough or dyspnea. GASTROINTESTINAL: Denies abdominal pain, nausea, vomiting, or diarrhea. GENITOURINARY: Denies dysuria or hematuria. SKIN: Denies rash or itching. MUSCULOSKELETAL: Denies back pain, joint pain, or myalgia. NEUROLOGIC: Denies headache, numbness, or weakness. All other systems reviewed are negative, except as documented in HPI. [facility] Past Medical History Medical History (Updated 12/23/22 @ 14:06 by Asia Payne [facility]) Anxiety Congestive heart failure COPD (chronic obstructive pulmonary disease) Dilated cardiomyopathy Melanoma Surgical History Surgical History History of heart artery stent Family History Family History (Updated 12/22/22 @ 15:37 by Surinder Toure, [facility], ) Mother Family history non-contributory Social History Social History Smoking packs per day: 0.5 Smoking cigarettes per day: 10.0 Years smoked: 30 Smoking pack-years: 15.00 Smoking status: Current every day smoker Tobacco type: cigarettes Second hand tobacco smoke exposure: Yes Alcohol intake: former Substance use: current Substance use type: marijuana Other substance usage details: history of meth use Living arrangements: with family Gender identity (if verbalized by the patient): Male Sexual Orientation (if Verbalized by the Patient): Straight or Heterosexual Spiritual care concerns: No Comments At the time of my signature, I reviewed and agree with the nursing past medical, surgical, social, and family history. There is no relevant family history pertinent to the patient complaint. Exam Narrative: Complete exam not facility due to patient walking out of the room out of frustration for not getting his chronic medications refilled. GENERAL: This is a well-nourished, well-developed patient. Poor hygiene HEAD: normocephalic, atraumatic. EYES: PERRL. Sclera clear/white. Vision is grossly intact. EARS: External ears normal NOSE: External nose normal with no obvious nasal discharge, nares
== END 2022-12-23 14:05 | disposition left against medical advice (07) ==
PROVIDERS: Emergency Provider Nurse Practitioner Family
DX: Z76.0 Encounter for issue of repeat prescription (principal); I50.9 Heart failure, unspecified; J44.9 Chronic obstructive pulmonary disease, unspecified; F17.210 Nicotine dependence, cigarettes, uncomplicated
CPT/HCPCS: 99211; G0463

== ENCOUNTER 2023-03-15 10:35 | Emergency (ER) | payer OTHER, SELFPAY ==
[2023-03-15 10:42] VITALS: BP 120/91; PULSE 93; RESP 20; TEMP 36.6; O2SAT 100
--- NOTE | 2023-03-15 10:52 | ED.URI ---
HPI - URI/Sore Throat General Chief Complaint: Upper Respiratory Infection Stated Complaint: cough History of Present Illness HPI Narrative: Patient presents with a cough for the past 2 weeks. No shortness of breath no chest pain. Patient has tried several [id number] medications with no relief in his cough. Patient states it is productive at times but denies any fever. Related Data Home Medications Medication Instructions Recorded Confirmed carvedilol 6.25 mg tablet 6.25 mg PO BID 09/16/21 02/16/22 furosemide 20 mg tablet 20 mg PO DAILY 09/16/21 02/16/22 sacubitril 24 mg-valsartan 26 mg 1 tablet PO BID 09/16/21 02/16/22 tablet (Entresto) spironolactone 25 mg tablet 25 mg PO DAILY 09/16/21 02/16/22 empagliflozin 10 mg tablet 10 mg DAILY 12/22/22 (Jardiance) Allergies Allergy/AdvReac Type Severity Reaction Status Date / Time No Known Allergies Allergy Verified 02/16/22 11:48 Review of Systems Review of Systems: ROS CONSTITUTIONAL: Denies chills, or sweats. Reports fever and generalized body aches EYES: Denies visual changes, redness, or discharge. ENT: Denies otalgia. Reports nasal congestion runny nose and sore throat CARDIOVASCULAR: Denies chest pain, palpitations, or edema. RESPIRATORY: Denies dyspnea. Reports occasional cough GASTROINTESTINAL: Denies abdominal pain, nausea, vomiting, or diarrhea. GENITOURINARY: Denies dysuria or hematuria. SKIN: Denies rash or itching. MUSCULOSKELETAL: Denies back pain, joint pain, or myalgia. Reports generalized body aches NEUROLOGIC: Denies headache, numbness, or weakness. PSYCHIATRIC: Denies anxiety or depression. [facility] Past Medical History Medical History (Updated 03/15/23 @ 10:55 by CASIMIRO Chavira) Anxiety Congestive heart failure COPD (chronic obstructive pulmonary disease) Dilated cardiomyopathy Melanoma Surgical History Surgical History History of heart artery stent Family History Family History (Updated 12/22/22 @ 15:37 by CASIMIRO Moreland, [facility]) Mother Family history non-contributory Social History Social History Smoking packs per day: 0.5 Smoking cigarettes per day: 10.0 Years smoked: 30 Smoking pack-years: 15.00 Smoking status: Current every day smoker Tobacco type: cigarettes Second hand tobacco smoke exposure: Yes Alcohol intake: former Substance use: current Substance use type: marijuana Other substance usage details: history of meth use Living arrangements: with family Gender identity (if verbalized by the patient): Male Sexual Orientation (if Verbalized by the Patient): Straight or Heterosexual Spiritual care concerns: No Comments At time of signature, agree with nursing past medical, surgical, social and family history. There is no relevant family history pertinent to the presenting complaint Exam Narrative: The patient is a well-developed, well-nourished in no acute distress. SKIN: Skin is warm and dry without erythema, swelling or exudate. There is good turgor. No tenting. HEAD: Atraumatic. Normocephalic. No temporal or scalp tenderness. EYES: Moist and bright. Sclera and conjunctivae normal. No discharge. PERRLA. Extraocular motions intact. Gross visual acuity intact. EARS: Pinna is normal shape and contour. Clear external auditory canals. TM pearly parker with good cone of light, no erythema or suppuration. Bilateral cerumen noted no gross hearing deficit. NOSE: pink, moist mucosa with good air movement. Clear rhinorrhea without nasal flaring. Septum midline. Mouth: moist mucous membranes. THROAT; mild erythema noted to posterior oropharynx with moderate postnasal drainage. Without exudate or ulceration.. Uvula midline. Normal movement of soft palate. NECK: Supple and nontender with full range of motion without discomfort. No meningeal signs. LUNGS: Equ
== END 2023-03-15 11:05 | disposition home or self-care (01) ==
PROVIDERS: Emergency Provider Nurse Practitioner Family
DX: J40 Bronchitis, not specified as acute or chronic (principal); F17.210 Nicotine dependence, cigarettes, uncomplicated; I50.9 Heart failure, unspecified; J44.9 Chronic obstructive pulmonary disease, unspecified; I42.0 Dilated cardiomyopathy; Z85.820 Personal history of malignant melanoma of skin; Z95.5 Presence of coronary angioplasty implant and graft
CPT/HCPCS: 99213; G0463

== ENCOUNTER 2023-08-26 17:12 | Emergency (ER) | payer OTHER, SELFPAY ==
[2023-08-26] VITALS (24 sets, daily range): BP systolic 103–120; BP diastolic 67–105; PULSE 91–105; RESP 14–28; TEMP 36.2; O2SAT 99–100
--- NOTE | ~2023-08-26 | CT_ITS ---
EXAMINATION: CT abdomen pelvis w con DATE: 08/26/2023 18:17 INDICATION: Upper abdomen pain. TECHNIQUE: Computed tomography (CT) of the abdomen and pelvis was performed with 100 cc Omnipaque 350 intravenous contrast. The dose-length product was 535.02 mGy-cm. Automated exposure control and iter ative reconstruction technique were employed. COMPARISON: None. FINDINGS: Lung bases are unremarkable. Heart size mildly enlarged. No significant pleural or pericard ial effusion. Gallbladder is distended with moderate fluid surrounding the gallbladder, suspicious fo r cholecystitis. Diffuse fatty infiltration of the liver. No significant biliary or pancreatic ductal dilation. Nonobstructive bowel gas pattern. The spleen, pancreas, adrenal glands and kidneys are unr emarkable. No significant vascular abnormality. No lymphadenopathy. Small amount of free fluid in the pelvis. IMPRESSION: 1. Distended gallbladder with moderate surrounding fluid, suspicious for cholecystitis. 2: Free fluid in the perihepatic space and pelvis. 3: Fatty infiltration of the liver. Reviewed, dictated and finalized at location A. IMPRESSION: 1. Distended gallbladder with moderate surrounding fluid, suspicious for cholec ystitis. 2: Free fluid in the perihepatic space and pelvis. 3: Fatty infiltration of the liver.
--- NOTE | ~2023-08-26 | XR_ITS ---
XR chest 2V 08/26/2023 17:59 Indication: Chest pain. Hypertension. Procedure: 2 view chest Comparison: 09/19/2021 Findings: Moderate cardiomegaly. No focal air space disease, pulmonary edema, pleural effusion or elham pected pneumothorax. Impression: 1: No acute cardiopulmonary disease. Reviewed, dictated and finalized at location A. Impression: 1: No acute cardiopulmonary disease.
--- NOTE | ~2023-08-26 | US_ITS ---
US abdomen limited INDICATION: Rule out cholecystitis PROCEDURE: Realtime right upper abdominal ultrasound. COMPARISON: CT dated 08/26/2023 FINDINGS: The pancreas is normal without focal mass or pancreatic ductal dilation. Liver echotexture is normal without focal mass or intrahepatic biliary dilatation. There is normal directional flow i n the portal vein. There is free fluid surrounding the pancreas, liver and gallbladder. There is gallbladder wall thickening measuring 4 mm. Common bile duct measures 5.5 mm mm. No sonogr aphic Andrea's sign. IMPRESSION: 1: Free fluid in the right upper abdomen with gallbladder wall thickening. Consider cholecystitis in the appropriate clinical setting. Reviewed, dictated and finalized at location A. IMPRESSION: 1: Free fluid in the right upper abdomen with gallbladder wall thickening. Cons ider cholecystitis in the appropriate clinical setting.
--- NOTE | 2023-08-26 17:17 | ECG_ITS ---
Measurements Intervals [place] Rate: 102 P: 67 LA: 140 QRS: 111 QRSD: 105 T: 8 QT: 352 QTc: 459 Interpretive Statements SINUS TACHYCARDIA RIGHT AXIS DEVIATION LEFT ATRIAL ENLARGEMENT DELAYED PRECORDIAL R/S TRANSITION NONSPECIFIC T-WAVE ABNORMALITY- INF/LAT LEADS BASELINE ARTIFACT- I, III, AVR, AVL BORDERLINE ECG COMPARED TO ECG 09/19/2021 02:29:47 NO SIGNIFICANT CHANGES Electronically Signed On 08-27-2023 6:50:11 CDT by Evan Daugherty D.O.
--- NOTE | 2023-08-26 17:20 | ED.GENADULT ---
HPI - General Adult General Chief complaint: Chest Pain Stated complaint: diff breathing Time Seen by Provider: 08/26/23 18:15 Source: patient Mode of arrival: EMS Limitations: no limitations History of Present Illness HPI narrative: Patient is a 48-year-old male, with PMH of CHF, COPD, cardiomyopathy, who presents the ED via EMS with abdominal pain and chest pain. Patient is a resident of [facility]. Patient reports having upper abdominal pain since this morning. He also reports having nausea and vomiting, vomiting up yellow bile-like material. EMS was called for his abdominal pain and vomiting. Just prior to EMSs arrival, patient developed left-sided and midsternal chest pain. He does also complain of cough for the last 2 days, increased shortness of breath over the last couple of days. Denies fever, diarrhea, constipation, lower extremity pain or swelling. Related Data Home Medications Medication Instructions Recorded Confirmed carvedilol 6.25 mg tablet 6.25 mg PO BID 09/16/21 02/16/22 furosemide 20 mg tablet 20 mg PO DAILY 09/16/21 02/16/22 sacubitril 24 mg-valsartan 26 mg 1 tablet PO BID 09/16/21 02/16/22 tablet (Entresto) spironolactone 25 mg tablet 25 mg PO DAILY 09/16/21 02/16/22 empagliflozin 10 mg tablet 10 mg DAILY 12/22/22 (Jardiance) Allergies Allergy/AdvReac Type Severity Reaction Status Date / Time No Known Allergies Allergy Verified 02/16/22 11:48 Review of Systems Review of Systems: CONSTITUTIONAL: Denies fever, chills, or sweats. CARDIOVASCULAR: See HPI. RESPIRATORY: See HPI. GASTROINTESTINAL: See HPI. All systems reviewed & are unremarkable except as noted in HPI and below PMFSH Past Medical History Medical History Anxiety Congestive heart failure COPD (chronic obstructive pulmonary disease) Dilated cardiomyopathy Melanoma Surgical History Surgical History History of heart artery stent Family History Family History (Updated 08/27/23 @ 14:41 by Surinder Magallon MD) Mother Cancer Father Cirrhosis Social History Social History Smoking packs per day: 0.5 Smoking cigarettes per day: 10.0 Years smoked: 30 Smoking pack-years: 15.00 Smoking status: Current every day smoker Tobacco type: cigarettes Second hand tobacco smoke exposure: Yes Alcohol intake: former Substance use: current Substance use type: marijuana Other substance usage details: history of meth use Living arrangements: with family Gender identity (if verbalized by the patient): Male Sexual Orientation (if Verbalized by the Patient): Straight or Heterosexual Spiritual care concerns: No Exam Narrative: GENERAL: Appears older than stated age, non-toxic, in no acute distress. RESPIRATORY: Airway patent, respirations nonlabored. Clear to auscultation bilaterally, no rales, rhonchi, wheezing. No significant crackles or other focal lung sounds. Frequent coughing. CARDIOVASCULAR: Borderline tachycardic with regular rhythm without murmurs, rubs, or gallops. Radial pulses 2+ and equal bilaterally. ABDOMINAL: Soft, tenderness in epigastric and right upper quadrant, nondistended. Normoactive BS. MUSCULOSKELETAL: Moves all extremities. Strength/ROM intact without gross deformities. No lower extremity edema. SKIN: Warm, dry, normal color. No rashes. NEURO: A&O X3. Speech clear. Cranial nerves II-XII grossly intact. Steady gait. No ataxic movements. PSYCHIATRIC: Appropriate mood and affect. Normal interaction. Course Vital Signs Vital signs: Vital Signs Temperature 97.2 F L 08/26/23 17:16 Pulse Rate 101 H 08/26/23 17:16 Respiratory Rate 20 08/26/23 17:16 Blood Pressure 103/67 08/26/23 17:16 Pulse Oximetry 100 08/26/23 17:16 Oxygen Delivery Room Air 08/26/23 17:16 Temperature 97.2 F L 10
[2023-08-26 17:38] LABS: Basophils Absolute Auto 0.1 K/mm3 (0.0-0.1); Basophils Percent Auto 0.7 % (0.2-1.2); Eosinophils Absolute Auto 0.1 K/mm3 (0-0.3); Eosinophils Percent Auto 0.8 % (0-4.4); Hemoglobin 14.3 g/dL (14.0-18.0); Immature Granulocyte Absolute 0.03 K/mm3 (0.00-0.031); Immature Granulocyte Percent A 0.3 % (0-0.5); Lymphocytes Absolute Auto 1.95 K/mm3 (0.9-3.2); Mean Corpuscular HGB Conc 31.8 g/dl (32-36); Mean Corpuscular Hemoglobin 29.5 pg (26-34); Mean Platelet Volume 11.7 fl (7.4-10.4); Monocytes Absolute Auto 0.7 K/mm3 (0.1-0.6); Neutrophils Absolute Auto 8.6 K/mm3 (1.3-6.7); Neutrophils Percent Auto 75.2 % (45.5-73.1); Platelet Count Result 231 k/mm3 (150-375); Red Blood Count 4.84 M/mm3 (4.6-6.20); Red Cell Distribution Width 15.7 % (11.5-14.5); White Blood Count 11.5 K/mm3 (4.5-10.0)
[2023-08-26 17:48] LABS: Alanine Aminotransferase 53 U/L (6-50); Albumin Level 4.4 g/dL (3.5-5.1); Alkaline Phosphatase 90 U/L (38-126); Anion Gap 11 mmol/L (8-16); Aspartate Amino Transferase 41 U/L (17-59); Bilirubin,Total 1.3 mg/dL (0.2-1.3); Blood Urea Nitrogen 30 mg/dL (9-20); Calcium 9.3 mg/dL (8.4-10.2); Carbon Dioxide 16 mmol/L (22-30); Chloride 105 mmol/L (98-107); Estimated Glomerular Filt Rate > 60; Glucose 105 mg/dL (65-110); Lipase 75 U/L (23-300); Potassium 4.6 mmol/L (3.4-5.0); Sodium 132 mmol/L (137-145)
[2023-08-26 17:49] LABS: INR 1.3; Partial Thromboplastin Time 30.8 SECONDS (22.3-36.8); Prothrombin Time 17.1 Seconds (11.1-14.7)
[2023-08-26 18:00] LABS: Troponin I < 0.012 ng/mL (0.000-0.034)
[2023-08-26 18:14] LABS: Influenza A QL RT-PCR Negative (Negative); Influenza B QL RT-PCR Negative (Negative); SARS-CoV-2 RNA PCR Negative (Negative)
--- NOTE | 2023-08-26 18:27 | ED.CHESTPAIN ---
HPI - Chest Pain General Chief Complaint: Chest Pain Stated Complaint: diff breathing Time Seen by Provider: 08/26/23 18:15 Source: patient Mode of arrival: EMS Limitations: no limitations History of Present Illness HPI narrative: 48 years old white male came to the ED by ambulance from home complaining of general weakness and tiredness started 2 to 3 days ago, shortness of breath on exertion, worse with laying down flat, vomiting at least 3 times over the last 3 hours prior to arrival, history of coronary stents, congestive heart failure with ejection fraction 8, patient is telling me that his dispatcher chief oil at [facility] placed him on cardiac transplant list 2 months ago. Currently complaining of epigastric pain and chest pain with shortness of breath. Patient reports taking Eliquis Related Data Home Medications Medication Instructions Recorded Confirmed carvedilol 6.25 mg tablet 6.25 mg PO BID 09/16/21 02/16/22 furosemide 20 mg tablet 20 mg PO DAILY 09/16/21 02/16/22 sacubitril 24 mg-valsartan 26 mg 1 tablet PO BID 09/16/21 02/16/22 tablet (Entresto) spironolactone 25 mg tablet 25 mg PO DAILY 09/16/21 02/16/22 empagliflozin 10 mg tablet 10 mg DAILY 12/22/22 (Jardiance) Allergies Allergy/AdvReac Type Severity Reaction Status Date / Time No Known Allergies Allergy Verified 02/16/22 11:48 Review of Systems Review of Systems: All systems reviewed & are unremarkable except as noted in HPI and below PMFSH Past Medical History Medical History Anxiety Congestive heart failure COPD (chronic obstructive pulmonary disease) Dilated cardiomyopathy Melanoma Surgical History Surgical History History of heart artery stent Family History Family History Mother Family history non-contributory Social History Social History Smoking packs per day: 0.5 Smoking cigarettes per day: 10.0 Years smoked: 30 Smoking pack-years: 15.00 Smoking status: Current every day smoker Tobacco type: cigarettes Second hand tobacco smoke exposure: Yes Alcohol intake: former Substance use: current Substance use type: marijuana Other substance usage details: history of meth use Living arrangements: with family Gender identity (if verbalized by the patient): Male Sexual Orientation (if Verbalized by the Patient): Straight or Heterosexual Spiritual care concerns: No Exam Narrative: General appearance: Well-developed, well-nourished Skin: Normal color Head: Normocephalic, nontraumatic Eyes: Clear conjunctiva ENT: Oropharynx normal, ears normal, nose normal Neck: Supple, nontender Chest and respiratory: Airway patent, no respiratory distress, no accessory muscle use Heart: Regular rate/rhythm Abdomen: Soft, mild epigastric tenderness, right upper quadrant tenderness, no organomegaly, quiet bowel sounds Vascular: Normal peripheral pulses, normal capillary refill. 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 Nguyễn at shift change at 11 PM, awaiting disposition. Patient been resting quietly in the emergency room without any issues or problems. Date: 08/26/23 Time: 11:00 Consultations Consultation #1: DR YO, dispatcher chief oil at [facility]/[place] covering Dr. Gastelum who accepted patient transfer. No bed available at this time Date
--- NOTE | 2023-08-26 19:35 | PC.NURSE ---
Assumed care of pt. Report from LORRIE Richter. Pt resting quietly per cart. Awaiting transfer to [facility]
[2023-08-26 19:57] LABS: NT Pro B Type Natriuretic Pept 14700 pg/mL (19.9-100)
[2023-08-26] MEDS: PIPERACILLN/TAZ 3.375GM/NS50ML 3.375 GM/50 ML BAG IVPB (20:02)
[2023-08-26] MEDS: LORazepam INJ (*CRX) 2 MG/ML VIAL 1 MG IV PUSH (20:37)
--- NOTE | 2023-08-26 20:49 | PC.NURSE ---
Pt requesting something to help calm down . VORB received from Dr Nuñez for Ativan
[2023-08-26 21:29] LABS: Troponin I < 0.012 ng/mL (0.000-0.034)
[2023-08-27] VITALS (38 sets, daily range): BP systolic 92–136; BP diastolic 68–96; PULSE 82–103; RESP 11–28; O2SAT 98–100
--- NOTE | 2023-08-27 | ECHO_ITS ---
Patient Info Name: Fer Tavera Age: 48 years : 1975 Gender: Male Ht: 69 in Wt: 159 lbs BSA: 1.88 m2 HR: 90 bpm BP: 104 / 79 mmHg Heart Rhythm: Sinus Rhythm Technical Quality: Good Exam Date: 08/27/2023 1:29 PM Exam Location: Echo Lab Patient Status: Emergency Admit Date: 08/26/2023 Staff Ordering Physician: Clark Nuñez MD Mail Service Coordinator: Silvana Trammell RDCS Attending Provider: Ruben Goode MD Exam Type: CA echo doppler color flow Study Info Indications - poor Ejection fraction, chf Complete two-dimensional, color flow and Doppler transthoracic echocardiogram is performed with contrast to opacify the left ventricle and to improve the deliniation of the left ventricle endocardial borders. Contrast/Agitated Saline Contrast/Ag. Saline: Definity Amount: 3.00 ml Summary 1. Definity contrast administered improved wall motion interpretation. 2. Left ventricular chamber dimension is severely enlarged. 3. Left ventricular systolic function is severely globally reduced, estimated at <15%. 4. The left ventricular diastolic function is grade III diastolic dysfunction. 5. E/e' 39 is significantly elevated. 6. Right ventricular chamber dimension is moderately enlarged. 7. Right ventricular systolic function is moderately reduced with abnormal TAPSE 1.6 cm. 8. Left atrial chamber dimension is moderately enlarged. 9. Right atrial chamber dimension is severely enlarged. 10. There is mild mitral valve regurgitation. 11. There is mild to moderate tricuspid valve regurgitation. 12. No pulmonary hypertension, estimated pulmonary arterial systolic pressure is 29 mmHg. 13. There is trace pulmonic regurgitation. 14. The aortic root size at the sinus of Valsalva is mildly dilated at 4.3 cm. Left Ventricle E/e' 39 is significantly elevated. Definity contrast administered improved wall motion interpretation. Left ventricular chamber dimension is severely enlarged. Left ventricular systolic function is severely globally reduced, estimated at <15%. The left ventricular diastolic function is grade III diastolic dysfunction. Right Ventricle Right ventricular systolic function is moderately reduced with abnormal TAPSE 1.6 cm. Right ventricular chamber dimension is moderately enlarged. Left Atria Left atrial chamber dimension is moderately enlarged. Right Atria Right atrial chamber dimension is severely enlarged. Aortic Valve The aortic valve is trileaflet. There is no aortic valve stenosis. There is no aortic valve regurgitation. Pulmonic Valve There is trace pulmonic regurgitation. Mitral Valve There is no mitral valve stenosis. There is mild mitral valve regurgitation. Tricuspid Valve There is mild to moderate tricuspid valve regurgitation. No pulmonary hypertension, estimated pulmonary arterial systolic pressure is 29 mmHg. Pericardium/Pleural There is no pericardial effusion. Inferior Vena Cava Normal inferior vena cava with >50% collapse upon inspiration consistent with normal right atrial pressure, 5 mmHg. Aorta The aortic root size at the sinus of Valsalva is mildly dilated at 4.3 cm. Left Ventricular Outflow Tract Name Value Normal LVOT 2D LVOT Diameter 2.2 cm LVOT Doppler
[2023-08-27 00:02] LABS: Troponin I < 0.012 ng/mL (0.000-0.034)
--- NOTE | 2023-08-27 00:30 | PC.NURSE ---
Pt c/o cough, clear sputum. ERP notified and orders placed.
--- NOTE | 2023-08-27 00:55 | PC.NURSE ---
Pt removed himself from all monitoring equipment. Using foul language and threw cell phone against wall. States is upset that he cannot reach my girl who he was wanting to have come up to visit him. Talking about signing himself out. Gave pt risks and benefits. At this time, not answering if he is wanting to stay and wait for the bed at [facility] or sign out AMA.
[2023-08-27] MEDS: BUMETANIDE INJ 1 MG/4 ML VIAL IV PUSH (01:14)
--- NOTE | 2023-08-27 01:19 | PC.NURSE ---
Pt agreeable to have monitoring placed back on. Hospital bed provided to pt for comfort. Meds given per DEC. More calm. Update given to Pipe.
--- NOTE | 2023-08-27 02:46 | PC.NURSE ---
Pt again stating that he wants to leave. Re-explained AMA process. Pt asking for ativan and neb treatment. ERP notified. Pt sats 100% on RA.
[2023-08-27] MEDS: PIPERACILLN/TAZ 3.375GM/NS50ML 3.375 GM/50 ML BAG IVPB ×2 (03:11→09:24)
--- NOTE | 2023-08-27 04:13 | PC.NURSE ---
Pt sleeping quietly per cart. O2 sats intermittently drop to 88% while sleeping. Possibly has sleep apnea. O2 2L NC placed for comfort. Pt calm and cooperative at this time.
--- NOTE | 2023-08-27 07:16 | PC.NURSE ---
Report to LORRIE Baker
--- NOTE | 2023-08-27 09:28 | PC.NURSE ---
0926 Gave Martina from [facility] transfer center update on pt condition
--- NOTE | 2023-08-27 11:34 | PC.NURSE ---
[facility] remains @ full cap-could be multiple days for bed pt remains on bed placement list
--- NOTE | 2023-08-27 14:32 | PM.CNCAR ---
Assessment and Plan Assessment and plan (1) Acute cholecystitis: Code(s): K81.0 - Acute cholecystitis Status: Acute Assessment and Plan: Per General surgery. Reportedly patient is awaiting transfer to [facility] because of underlying cardiomyopathy and access to tertiary care (2) Acute on chronic systolic (congestive) heart failure: Code(s): I50.23 - Acute on chronic systolic (congestive) heart failure Status: Acute Assessment and Plan: He did receive IV Bumex last night. Does feel better. Should have his medications continued including carvedilol, Jardiance, Entresto, spironolactone while awaiting transfer. 2D echocardiogram Doppler is ordered and will be reviewed. Will give another dose of IV Bumex 1 mg tomorrow if he is still here (3) Dilated cardiomyopathy: Code(s): I42.0 - Dilated cardiomyopathy Status: Acute Assessment and Plan: As above. Echo pending (4) COPD (chronic obstructive pulmonary disease): Qualifiers: COPD type: unspecified COPD Qualified Code(s): J44.9 - Chronic obstructive pulmonary disease, unspecified Code(s): J44.9 - Chronic obstructive pulmonary disease, unspecified Status: Acute Assessment and Plan: Related to tobacco. Tobacco abuse counseling performed History of Present Illness History of Present Illness Consult date/time: 08/27/23 14:32 Requesting physician: Ruben Goode MD Consult reason: congestive heart failure Reason For Visit: diff breathing Narrative: Sedation: Acute on chronic CHF Requesting provider: Dr. Goode Date of service 08/27/2023 History patient is a 48-year-old male who has history of dilated cardiomyopathy and followed by Dr. Gastelum at [facility]. Reportedly has an ejection fraction of less than 25% with normal coronaries. He reportedly is good about taking medications and is on GDMT. He is staying at [facility] and has had progressively worsening shortness of breath over the past couple of weeks. Dyspnea is accompanied by weakness and sometimes dizziness. He describes a progressive decline in ability to function. He denies any syncope. Does describe paroxysmal nocturnal dyspnea as well as orthopnea at an angle of about 30?. No edema. Came to hospital because of abdominal pain and chest pain. abdominal pain was diffuse especially in the right upper quadrant area. Chest pain was nonexertional and located in left upper chest area which is since resolved. He has been receiving diuretics. CT scan does show gallbladder wall thickening and fluid concerning for cholecystitis. Cardiology was consulted though because of his cardiac status worsening shortness of breath Review of Systems Review of Systems: All systems reviewed & are unremarkable except as noted in HPI and below Constitutional: Constitutional: Reports difficulty sleeping Eyes: Eyes: Denies blurry vision ENT: Reports Normal hearing present Cardiovascular: Cardiovascular: Reports chest pain, Denies leg edema and Reports lightheadedness Respiratory: Respiratory: Reports dyspnea on exertion Gastrointestinal: Gastrointestinal: Reports abdominal pain Genitourinary: Genitourinary: Denies hematuria Musculoskeletal: Musculoskeletal: Denies back pain Integumentary/Breasts: Skin/Breast: Denies rash Neurologic: Denies Abnormal speech present Psychiatric: Psychiatric: Denies anxiety Endocrine: Endocrine: Denies excessive sweating Hematologic/Lymphatic: Hematologic/Lymphatic: Denies easy bleeding Allergic/Immunologic: Allergic/Immunologic: Denies GI upset with certain foods PMFSH Past Medical History Medical History Anxiety Congestive heart failure COPD (chronic obstructive pulmonary disease) Dilated cardiomyopathy Melanoma Surgical History Surgical History History of heart artery stent Fa
--- NOTE | 2023-08-27 17:44 | PCCCNOTE ---
CC provided patient a cab voucher to return to [facility]. 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
== END 2023-08-27 15:09 | disposition left against medical advice (07) ==
PROVIDERS: Emergency Medicine; Physician Assistant; Emergency Provider Preventive Medicine Aerospace Medicine
DX: I50.23 Acute on chronic systolic (congestive) heart failure (principal); K81.0 Acute cholecystitis; I42.0 Dilated cardiomyopathy; J44.9 Chronic obstructive pulmonary disease, unspecified; F17.210 Nicotine dependence, cigarettes, uncomplicated; Z85.820 Personal history of malignant melanoma of skin; Z95.5 Presence of coronary angioplasty implant and graft; Z79.84 Long term (current) use of oral hypoglycemic drugs; R00.0 Tachycardia, unspecified; R94.31 Abnormal electrocardiogram [ECG] [EKG]
CPT/HCPCS: 36415; 71046; 74177; 76705; 80053; 83690; 83880; 84484; 85025; 85610; 85730; 87636; 93005; 93306; 96365; 96366; 96375; 99284; J2060; J2543; Q9967